=== PATIENT | male | born 1995 | race Caucasian/White ===

== ENCOUNTER 2018-11-09 17:09 | Emergency (ER) | payer MEDICAID ==
[~2018-11-09] VITALS: Ht 182.9 cm; Wt 125.0 kg
[2018-11-09 17:19] VITALS: BP 138/106
== END 2018-11-10 00:36 | disposition left against medical advice (07) ==
LOC: ER 17:09
DX: Z53.21 Procedure and treatment not carried out due to patient leaving prior to being seen by health care provider (principal)